=== PATIENT | male | born 1945 | race Hispanic/Latino ===

== ENCOUNTER → 2019-12-25 | Outpatient (CLI) | payer OTHER ==
--- NOTE | 2019-12-25 13:02 | NUR ---
MBSS COMPLETED. TRANSIENT PENETRATION WITH THIN LIQUIDS. RECOMMEND MECHANICAL SOFT/GROUND, NECTAR THICK LIQUIDS, PILLS CRUSHED WITH APPLESAUCE. PARKING METER ATTENDANT PROVIDED RESULTS AND RECOMMENDATIONS AFTER EVALUATION AND EXPLAINED HOW TO PREPARE NECTAR THICK LIQUIDS (THICKENER SAMPLE PROVIDED TO Pt). Pt VERBALIZED UNDERSTANDING OF RECOMMENDATIONS AND ALL QUESTIONS WERE ANSWERED AT THIS TIME. Addendum: 12/25/[address] [facility] Amended: Links added.
== END | disposition home or self-care (01) ==
LOC: RAH 09:58
PROVIDERS: ATTEND Internal Medicine
DX: R47.1 Dysarthria and anarthria (principal); Z86.73 Personal history of transient ischemic attack (TIA), and cerebral infarction without residual deficits
CPT/HCPCS: 74230; 92611